=== PATIENT | female | born 1935 | race Caucasian/White ===

== ENCOUNTER 2021-07-05 16:01 | Inpatient (IN) | payer MEDICARE ==
[~2021-07-05] VITALS: Ht 157.5 cm; Wt 43.3 kg
[2021-07-05 16:03] VITALS: BP 148/76
[2021-07-05 16:45] LABS: BASO % 0.4 % (0.0-1.0); EOS # 0.1 10*3/uL (0.0-0.4); EOS % 1.2 % (1.0-4.0); HEMATOCRIT 39.6 % (37.0-47.0); LYMPH # 1.2 10*3/uL (1.3-4.4); LYMPH % 14.1 % (27.0-41.0); MEAN CELL VOLUME 82.8 fl (81.0-99.0); MEAN CORPUSCULAR HGB 26.2 pg (27.0-31.0); MEAN CORPUSCULAR HGB CONC 31.6 g/dl (33.0-37.0); MONO % 11.3 % (3.0-9.0); NEUT # 6.1 10*3/uL (2.3-7.9); NEUT % 72.8 % (47.0-73.0); PLATELET COUNT AUTOMATED 277 10*3/uL (130-400); RED BLOOD COUNT 4.78 10*6/uL (4.10-5.10); RED CELL DISTRI WIDTH 17.2 % (0-14.5); WHITE BLOOD COUNT 8.4 10*3/uL (4.8-10.8)
[2021-07-05 17:03] LABS: ALBUMIN 2.2 gm/dl (3.1-4.5); ALKALINE PHOSPHATASE 64 U/L (45-117); BUN 8 mg/dl (7-24); CHLORIDE 105 mmol/L (98-107); CREATININE 0.36 mg/dL (0.55-1.02); POTASSIUM 3.9 mmol/L (3.5-5.1); SGOT/AST 6 IU/L (3-35); SGPT/ALT 7 U/L (12-78); SODIUM 140 mmol/L (136-145); TOTAL PROTEIN 7.1 gm/dL (6.4-8.2)
[2021-07-05 17:35] LABS: BILIRUBIN Negative (Negative); BLOOD 1+ (Negative); CLARITY Cloudy (Clear); COLOR Yellow (Yellow); GLUCOSE Negative (Negative); KETONE 1+ (Negative); LEUKO ESTERASE 1+ (Negative); NITRITE Positive (Negative); SPECIFIC GRAVITY 1.015 (1.001-1.030)
[2021-07-05 17:42] LABS: BACTERIA 4+
[2021-07-05 17:43] LABS: WBC 51-100 wbc/hpf (0-5)
[2021-07-05] MEDS ORDERED: DIVALPROEX SOD125 M1 PO (19:31)
[2021-07-05] MEDS ORDERED: BUDESONIDE EC3 MG PO (19:31)
[2021-07-05] MEDS ORDERED: LEVOTHYROXINE100 MC1 PO (19:32)
[2021-07-05] MEDS ORDERED: DONEPEZIL HCL10 MG PO (19:32)
[2021-07-05] MEDS ORDERED: MIRTAZAPINE30 M2 PO (19:33)
[2021-07-05] MEDS ORDERED: MASON NATURAL325 MG PO (19:33)
[2021-07-05] MEDS ORDERED: TRAZODONE100 MG PO (19:34)
[2021-07-05] MEDS ORDERED: MEMANTINE HCL10 MG PO (19:35)
[2021-07-05] MEDS ORDERED: ASPIRIN ADULT L81 M1 PO (19:35)
[2021-07-05] MEDS ORDERED: CALMOSEPTINE OI71 GM T (19:36)
[2021-07-05] MEDS ORDERED: SENNA-S 8.6-501 EACH PO (19:37)
[2021-07-05] MEDS ORDERED: SENNA-TIME S T1 EACH PO (19:37)
[2021-07-05] MEDS ORDERED: NOXIFOL-D32500 UNIT PO (19:39)
[2021-07-05] MEDS ORDERED: PAIN RELIEVER325 MG PO (19:40)
[2021-07-05] MEDS ORDERED: POLYETHYLENE GLY1 G1 MC (19:42)
[2021-07-05 22:54] VITALS: BP 118/64
[2021-07-06] VITALS (7 sets, daily range): BP systolic 112–164; BP diastolic 61–81
[2021-07-06 05:01] LABS: ACT PARTIAL THROMBO TIME 28.3 SECONDS (20.0-32.1)
[2021-07-06 05:06] LABS: ALBUMIN 2.3 gm/dl (3.1-4.5); ALKALINE PHOSPHATASE 67 U/L (45-117); BUN 6 mg/dl (7-24); CHLORIDE 106 mmol/L (98-107); CHOLESTEROL 174 mg/dL (<200); CREATININE 0.39 mg/dL (0.55-1.02); LDL CHOLESTEROL 107 mg/dL (9-159); POTASSIUM 3.5 mmol/L (3.5-5.1); SGOT/AST 8 IU/L (3-35); SODIUM 141 mmol/L (136-145); TOTAL PROTEIN 7.3 gm/dL (6.4-8.2); TRIGLYCERIDES 97 mg/dl (<150)
[2021-07-06 05:09] LABS: SGPT/ALT < 6 U/L (12-78)
[2021-07-06 05:12] LABS: FREE T4 1.45 ng/dl (0.76-1.46); THYROID STIM HORMONE (HS) 0.733 uIU/ml (0.358-4.75)
[2021-07-06 05:55] LABS: BASO % 0.6 % (0.0-1.0); EOS # 0.2 10*3/uL (0.0-0.4); EOS % 3.4 % (1.0-4.0); HEMATOCRIT 40.5 % (37.0-47.0); LYMPH # 1.4 10*3/uL (1.3-4.4); LYMPH % 19.2 % (27.0-41.0); MEAN CELL VOLUME 83.3 fl (81.0-99.0); MEAN CORPUSCULAR HGB 26.3 pg (27.0-31.0); MEAN CORPUSCULAR HGB CONC 31.6 g/dl (33.0-37.0); MEAN PLATELET VOLUME 11.5 fl (9.6-12.3); MONO # 0.9 10*3/uL (0.1-1.0); NEUT # 4.5 10*3/uL (2.3-7.9); NEUT % 63.5 % (47.0-73.0); PLATELET COUNT AUTOMATED 277 10*3/uL (130-400); RED BLOOD COUNT 4.86 10*6/uL (4.10-5.10); RED CELL DISTRI WIDTH 17.4 % (0-14.5); WHITE BLOOD COUNT 7.1 10*3/uL (4.8-10.8)
[2021-07-06 07:22] LABS: VITAMIN D, 25-HYDROXY 32.2 ng/mL (30-100)
[2021-07-07] VITALS: BP 120/68
[2021-07-07 06:57] LABS: BASO % 0.2 % (0.0-1.0); EOS # 0.1 10*3/uL (0.0-0.4); EOS % 1.2 % (1.0-4.0); HEMATOCRIT 42.5 % (37.0-47.0); LYMPH % 9.6 % (27.0-41.0); MEAN CELL VOLUME 84.3 fl (81.0-99.0); MEAN CORPUSCULAR HGB 26.4 pg (27.0-31.0); MEAN CORPUSCULAR HGB CONC 31.3 g/dl (33.0-37.0); MEAN PLATELET VOLUME 11.2 fl (9.6-12.3); MONO # 0.9 10*3/uL (0.1-1.0); MONO % 9.3 % (3.0-9.0); NEUT # 7.9 10*3/uL (2.3-7.9); NEUT % 79.3 % (47.0-73.0); PLATELET COUNT AUTOMATED 296 10*3/uL (130-400); RED BLOOD COUNT 5.04 10*6/uL (4.10-5.10); RED CELL DISTRI WIDTH 17.4 % (0-14.5); WHITE BLOOD COUNT 9.9 10*3/uL (4.8-10.8)
[2021-07-07 07:12] LABS: BUN 7 mg/dl (7-24); CHLORIDE 104 mmol/L (98-107); CREATININE 0.46 mg/dL (0.55-1.02); POTASSIUM 3.7 mmol/L (3.5-5.1); SODIUM 138 mmol/L (136-145)
[2021-07-07 08:00] VITALS: BP 148/68
[2021-07-07 12:00] VITALS: BP 113/68
[2021-07-07 16:00] VITALS: BP 150/68
[2021-07-07 20:00] VITALS: BP 114/65
[2021-07-08] VITALS: BP 139/69
[2021-07-08 08:00] VITALS: BP 154/64
[2021-07-08 12:00] VITALS: BP 143/60
[2021-07-09] VITALS: BP 132/58
[2021-07-09 08:00] VITALS: BP 134/50
[2021-07-09] MEDS ORDERED: LEVOTHYROXINE100 MC1 PO (10:38)
[2021-07-09] MEDS ORDERED: LEVOFLOXACIN500 MG PO (10:38)
[2021-07-09] MEDS ORDERED: Nystatin Ointme30 GM T (10:38)
[2021-07-09] MEDS ORDERED: FLUCONAZOLE100 MG PO (10:38)
[2021-07-09] MEDS ORDERED: KENALOG 0.1% OI15 GM T (10:38)
[2021-07-09] MEDS ORDERED: TRAZODONE100 MG PO (10:57)
[2021-07-09] MEDS ORDERED: MIRTAZAPINE30 M2 PO (10:57)
[2021-07-09 16:00] VITALS: BP 108/50
[2021-07-10] VITALS: BP 154/56
[2021-07-10 08:00] VITALS: BP 130/62
[2021-07-10 16:00] VITALS: BP 149/60
== END 2021-07-10 17:33 | DRG 189 ==
LOC: ED 16:01 → 4E 19:44 → EDHOLD 19:44 → 4E 07-06 16:57
PROVIDERS: Internal Medicine; Physician Assistant; ADMIT Emergency Medicine; ATTEND Emergency Medicine
DX: J96.01 Acute respiratory failure with hypoxia (principal); G93.41 Metabolic encephalopathy; E43 Unspecified severe protein-calorie malnutrition; N30.00 Acute cystitis without hematuria; Z51.5 Encounter for palliative care; B37.9 Candidiasis, unspecified; B36.9 Superficial mycosis, unspecified; Z20.822 Contact with and (suspected) exposure to COVID-19; Z66 Do not resuscitate; F03.90 Unspecified dementia, unspecified severity, without behavioral disturbance, psychotic disturbance, mood disturbance, and anxiety; B96.1 Klebsiella pneumoniae [K. pneumoniae] as the cause of diseases classified elsewhere; I10 Essential (primary) hypertension; E03.9 Hypothyroidism, unspecified; E55.9 Vitamin D deficiency, unspecified; E11.65 Type 2 diabetes mellitus with hyperglycemia; M81.0 Age-related osteoporosis without current pathological fracture; Z91.041 Radiographic dye allergy status; Z80.0 Family history of malignant neoplasm of digestive organs; Z79.1 Long term (current) use of non-steroidal anti-inflammatories (NSAID); Z79.82 Long term (current) use of aspirin; Z79.899 Other long term (current) drug therapy